=== PATIENT | female | born 2000 | race Caucasian/White ===

== ENCOUNTER 2023-09-18 12:45 | Inpatient (IN) | payer OTHER ==
[~2023-09-18] VITALS: Ht 165.1 cm; Wt 67.1 kg
[2023-09-18 13:58] VITALS: BP 130/80
[2023-09-18] MEDS ORDERED: CALCIUM CARBONATE 500 MG CHEW PO PRN (14:30)
[2023-09-18] MEDS ORDERED: OXYTOCIN/DEXTROSE 5% 20 UNITS/100 ML BAG IV SCH (14:30)
[2023-09-18] MEDS ORDERED: MAGNESIUM HYDROXIDE/AL HYDROX 30 ML CUP PO PRN (14:30)
[2023-09-18 14:32] LABS: HEMATOCRIT 33.4 % (35.0-50.0); HEMOGLOBIN 11.4 g/dL (12.0-18.0); MCH 28.9 (27-36); MCHC 34.1 g/dl (30-36); MCV 84.7 fl (81-99); RBC 3.94 M/ul (4.3-5.7); RDW 14.1 (10.5-15.0)
[2023-09-18 15:05] LABS: ABO AB; RH NEGATIVE
[2023-09-18 15:06] LABS: ANTIBODY SCREEN NEGATIVE
--- NOTE | 2023-09-18 21:52 | PR ---
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 Hopefully, AROM will increase contractions. status reassuring at this time. FETUS A: [id number] FHR Baseline: 125 Variability: Moderate 6-25bpm Accelerations: 15X15 Decelerations: None FHR Category: Category I Presentation: Vertex FETUS B: [id number] Signing Physician: Donna Osorio MD Copies: ~ *Electronically Signed* 09/18/23 215 DONNA OSORIO MD PATIENT NAME: DEENA MOROCHO PROGRESS NOTE DATE OF : 02 PHYSICIAN: DONNA OSORIO MD RPT #: [id number] REPORT IS CONFIDENTIAL AND NOT TO BE RELEASED WITHOUT AUTHORIZATION
[2023-09-18] MEDS ORDERED: LIDOCAINE HCL 2% 5 ML SDV ONE (22:45)
[2023-09-18] MEDS ORDERED: BUPIVACAINE HCL 0.25% 10 ML SDV INJ ONE (22:45)
[2023-09-18 22:53] LABS: AMPHETAMINES, URINE NEGATIVE (NEGATIVE); BARBITURATES, URINE NEGATIVE (NEGATIVE); BENZODIAZEPINE, URINE NEGATIVE (NEGATIVE); BUPRENORPHINE, URINE NEGATIVE (NEGATIVE); CANNABINOID, URINE NEGATIVE (NEGATIVE); COCAINE, URINE NEGATIVE (NEGATIVE); ECSTASY, URINE NEGATIVE (NEGATIVE); FENTANYL, URINE NEGATIVE (NEGATIVE); METHADONE, URINE NEGATIVE (NEGATIVE); OPIATES, URINE NEGATIVE (NEGATIVE); OXYCODONE, URINE NEGATIVE (NEGATIVE); PHENCYCLIDINE, URINE NEGATIVE (NEGATIVE)
[2023-09-18] MEDS ORDERED: LACTATED RINGER'S 2,000 ML IV ONE (23:15)
[2023-09-18] MEDS ORDERED: ePHEDrine sulfate 5 MG/ML SYRINGE IV PRN (23:15)
[2023-09-18] MEDS ORDERED: LACTATED RINGER'S 500 ML IV PRN (23:15)
[2023-09-19] MEDS ORDERED: LIDOCAINE 2% VISCOUS 6 ML SYR TOP ONE ×2 (01:30)
[2023-09-19] MEDS ORDERED: ACETAMINOPHEN 325 MG TAB PO PRN (01:30)
[2023-09-19] MEDS ORDERED: OXYTOCIN/0.9 % SODIUM CHLORIDE 500 ML IV SCH (01:30)
[2023-09-19] MEDS ORDERED: WITCH HAZEL/GLYCERIN 1 EA PAD TOP PRN (01:30)
[2023-09-19] MEDS ORDERED: HYDROCODONE/ACETA 5/325 TAB PO PRN (01:30)
[2023-09-19] MEDS ORDERED: MAGNESIUM HYDROXIDE 30 ML UDC PO PRN (01:30)
[2023-09-19] MEDS ORDERED: CALCIUM CARBONATE 500 MG CHEW PO PRN (01:30)
[2023-09-19] MEDS ORDERED: HYDROCORTISONE ACETATE 25 MG SUPP PR PRN (01:30)
[2023-09-19] MEDS ORDERED: BENZOCAINE 60 ML AEROSOL TOP PRN (01:30)
[2023-09-19] MEDS ORDERED: MAGNESIUM HYDROXIDE/AL HYDROX 30 ML CUP PO PRN (01:30)
[2023-09-19] MEDS ORDERED: IBUPROFEN 600 MG TAB PO PRN (01:30)
[2023-09-19] MEDS ORDERED: SENNOSIDES/DOCUSATE 1 EA TAB PO SCH (09:00)
[2023-09-20 05:13] LABS: HEMATOCRIT 30.3 % (35.0-50.0); HEMOGLOBIN 10.2 g/dL (12.0-18.0); MCH 28.7 (27-36); MCHC 33.4 g/dl (30-36); MCV 85.9 fl (81-99); RBC 3.54 M/ul (4.3-5.7); RDW 14.4 (10.5-15.0)
[2023-09-20 06:09] LABS: ABO AB; ANTIBODY SCREEN NEGATIVE; FETAL HEMOGLOBIN SCREEN NEGATIVE; RH NEGATIVE; RHIG STATUS CANDIDATE; RHIG VIAL 1 RG-23003N
--- NOTE | 2023-09-20 07:42 | PR ---
[facility] [address] [facility] [place], [place] [address] Signed PP Progress Notes Datetime Report Generated by [email or web address]: 09/20/2023 07:42 SUBJECTIVE: [id number] Pain: Within Normal Limits Vital Signs: [id number] Vital Signs: Reviewed; Within Normal Limits Cardiovascular: Not Done Respiratory: Not Done Abdomen/Uterus: Abnormal Lochia: Normal Vulva/Perineum: Not Done Breasts: Not Done CVA Tenderness: Not Done Extremities: Normal Incision: Not Applicable Progress: Normal Exam Comments: Fundus firm, NT @ U-2. H/H 10.2/30.3, WBC 15.1, plat 207k IMPRESSION/PLAN/PROCEDURES: [id number] Impression: Normal Progression Plan: Discharge Procedures: Rhogam Progress Notes: Doing well. She desires discharge. Signing Physician: Donna Osorio MD Copies: ~ *Electronically Signed* 09/20/2342 DONNA OSORIO MD PATIENT NAME: DEENA MOROCHO PROGRESS NOTE DATE OF : 02 PHYSICIAN: DONNA OSORIO MD RPT #: [id number] REPORT IS CONFIDENTIAL AND NOT TO BE RELEASED WITHOUT AUTHORIZATION
== END 2023-09-20 10:30 | disposition home or self-care (01) | DRG 807 ==
LOC: FBCO 12:45 → FBC 13:05
PROVIDERS: ADMIT Obstetrics & Gynecology; ATTEND Obstetrics & Gynecology
PROC: 10E0XZZ Delivery of Products of Conception, External Approach (ICD-10-PCS; principal; 2023-09-19)
PROC: 0KQM0ZZ Repair Perineum Muscle, Open Approach (ICD-10-PCS; 2023-09-19)
PROC: 10907ZC Drainage of Amniotic Fluid, Therapeutic from Products of Conception, Via Natural or Artificial Opening (ICD-10-PCS; 2023-09-19)
DX: O48.0 Post-term pregnancy (principal); Z37.0 Single live birth; O76 Abnormality in fetal heart rate and rhythm complicating labor and delivery; Z3A.40 40 weeks gestation of pregnancy; O70.1 Second degree perineal laceration during delivery
CPT/HCPCS: 01960; 36415; 80307; 83030; 85027; 86850; 86900; 86901; A9270; J2001; J2590; J2790; J7121